=== PATIENT | male | born 1965 | race Native Hawaiian/Other Pacific Islander ===

== ENCOUNTER 2019-09-05 14:04 | Emergency (ER) | payer OTHER ==
[~2019-09-05] VITALS: Ht 182.9 cm; Wt 120.2 kg
[2019-09-05 16:20] VITALS: BP 131/67; TEMP 98
== END 2019-09-05 16:20 | disposition home or self-care (01) ==
LOC: ED 14:04
DX: S40.012A Contusion of left shoulder, initial encounter (principal); S20.212A Contusion of left front wall of thorax, initial encounter; W17.89XA Other fall from one level to another, initial encounter; Y93.89 Activity, other specified; Y92.89 Other specified places as the place of occurrence of the external cause
CPT/HCPCS: 96372; 99283; J1885

== ENCOUNTER 2019-12-12 15:43 | Emergency (ER) | payer OTHER ==
[~2019-12-12] VITALS: Ht 182.9 cm; Wt 115.7 kg
[2019-12-12 15:58] VITALS: TEMP 97.9
[2019-12-12] MEDS ORDERED: METF500T PO (16:11)
[2019-12-12] MEDS ORDERED: LISI20TA11 PO (16:11)
[2019-12-12 18:37] LABS: PLATELET COUNT 130 K/uL (142-355)
[2019-12-12 18:51] VITALS: BP 105/69
== END 2019-12-12 18:55 | disposition home or self-care (01) ==
LOC: ED 15:43
PROVIDERS: Family Medicine
DX: S80.11XA Contusion of right lower leg, initial encounter (principal); S70.11XA Contusion of right thigh, initial encounter; V03.00XA Pedestrian on foot injured in collision with car, pick-up truck or van in nontraffic accident, initial encounter; Y92.89 Other specified places as the place of occurrence of the external cause
CPT/HCPCS: 36415; 80053; 85027; 96372; 99283; J1885

== ENCOUNTER 2020-02-01 12:16 | Emergency (ER) | payer OTHER ==
[~2020-02-01] VITALS: Ht 182.9 cm; Wt 108.9 kg
[~2020-02-01 12:16] MED LIST: LISI20TA11 PO; METF500T PO
[2020-02-01 13:19] LABS: POTASSIUM 3.8 mmol/L (3.6-5.2); SODIUM 137 mmol/L (136-145)
[2020-02-01 13:21] LABS: PLATELET COUNT 172 K/uL (142-355)
[2020-02-01 15:58] VITALS: TEMP 98.5
[2020-02-01 16:00] VITALS: BP 119/74
== END 2020-02-01 15:58 | disposition home or self-care (01) ==
LOC: ED 12:16
PROVIDERS: Emergency Medicine
DX: R07.89 Other chest pain (principal); F41.8 Other specified anxiety disorders; I95.9 Hypotension, unspecified
CPT/HCPCS: 80053; 82550; 82553; 84484; 85027; 93005; 96360; 99284

== ENCOUNTER 2021-11-21 15:22 | Outpatient (CLI) | payer OTHER | END 2021-11-21 19:14 | disposition home or self-care (01) | LOC: RAD 15:22 | PROVIDERS: ATTEND Nurse Practitioner Family | DX: M54.17 Radiculopathy, lumbosacral region (principal) ==

== ENCOUNTER 2022-01-24 13:41 | Emergency (ER) | payer OTHER ==
[~2022-01-24] VITALS: Ht 182.9 cm; Wt 108.9 kg
[2022-01-24 13:41] VITALS: TEMP 98.6
[2022-01-24 14:14] VITALS: BP 150/81
[2022-01-24 14:22] LABS: PLATELET COUNT 130 K/uL (142-355)
== END 2022-01-24 16:58 | disposition home or self-care (01) ==
LOC: ED 13:41
PROVIDERS: Emergency Medicine
DX: J44.9 Chronic obstructive pulmonary disease, unspecified (principal); F17.210 Nicotine dependence, cigarettes, uncomplicated; Z53.29 Procedure and treatment not carried out because of patient's decision for other reasons
CPT/HCPCS: 36600; 80053; 81002; 82805; 83880; 84484; 85027; 85379; 85610; 93005; 94664; 96365; 96366; 96375; 99284; J1956; J2930; Q9963

== ENCOUNTER 2022-07-29 00:53 | Emergency (ER) | payer OTHER ==
[~2022-07-29] VITALS: Ht 182.9 cm; Wt 108.9 kg
[2022-07-29 00:53] VITALS: TEMP 208.2
[2022-07-29 01:29] LABS: PLATELET COUNT 167 K/uL (142-355)
[2022-07-29 01:42] LABS: PARTIAL THROMBOPLASTIN TIME 30.3 SECONDS (24.5-33.6)
[2022-07-29 02:40] LABS: POTASSIUM 3.8 mmol/L (3.6-5.2)
[2022-07-29 04:20] VITALS: BP 114/65
== END 2022-07-29 04:25 | disposition short-term general hospital (02) ==
LOC: ED 00:53
PROVIDERS: Emergency Medicine Emergency Medical Services
PROC: 0T9B70Z Drainage of Bladder with Drainage Device, Via Natural or Artificial Opening (ICD-10-PCS; principal; 2022-07-29)
PROC: 0BH17EZ Insertion of Endotracheal Airway into Trachea, Via Natural or Artificial Opening (ICD-10-PCS; 2022-07-29)
PROC: 5A1935Z Respiratory Ventilation, Less than 24 Consecutive Hours (ICD-10-PCS; 2022-07-29)
DX: J96.00 Acute respiratory failure, unspecified whether with hypoxia or hypercapnia (principal); F17.210 Nicotine dependence, cigarettes, uncomplicated; Z11.52 Encounter for screening for COVID-19
CPT/HCPCS: 31500; 36415; 36600; 51702; 80053; 80307; 82805; 83605; 83735; 83880; 84484; 85027; 85610; 85730; 87040; 87635; 93005; 94002; 94664; 96360; 96361; 96365; 96366; 96375; 99285; J0696; J3490; U0003